=== PATIENT | male | born 2000 | race Two or more races ===

== ENCOUNTER 2021-03-04 23:17 | Observation (INO) ==
[2021-03-05] MEDS ORDERED: ACETAMINOPHEN 1,000 MG/100 ML VIAL IV STA (01:00)
[2021-03-05] MEDS ORDERED: ONDANSETRON INJ 2 MG/ML 2 ML VIAL IV STA (01:00)
[2021-03-05] MEDS ORDERED: SODIUM CHLORIDE 0.9% 1000ML 1,000 ML IV STA (01:00)
--- NOTE | 2021-03-05 01:03 | Emergency Department Note ---
History of Present Illness General Chief complaint: Abdominal Pain Stated complaint: ABDOMINAL PAIN Time Seen by Provider: 03/05/21 00:47 History of Present Illness Maximum Pain Intensity: 8 This 20-year-old presents to the ER complaining of nausea vomiting and abdominal pain Location: Abdomen Quality: Discomfort Severity: Moderate Duration: This morning Timing: Started this morning Context: Patient was concerned and came in Modifying factors: better with rest; worse with activity Patient denies chest pain, dyspnea, fevers, diarrhea, urinary symptoms, testicular or penile pain. No prior abdominal surgeries. Home Medications Medication Instructions Recorded Confirmed Type oxymetazoline 0.05 % nasal spray 2 spray INTRANASAL Q12H PRN 01/08/21 03/05/21 History (Nasal [place] (oxymetazoline)) Allergies Allergy/AdvReac Type Severity Reaction Status Date / Time No Known Allergies Allergy Unverified 03/05/21 01:10 Past Med/Surg History Medical History No pertinent past medical history Surgical History No pertinent past surgical history Social History Smoking Status: Current every day smoker Tobacco Type: E-cigarettes / Vaping Preferred Language: Persian Feels Safe at Home: Yes Review of Systems A total of 10 systems reviewed and were otherwise negative Physical Exam Vital Signs Vital Signs - 24 hr 03/04/21 23:29 03/05/21 01:27 Temperature 36.4 C L Temperature Source Temporal Artery Scan Pulse Rate 96 H Respiratory Rate 20 Respiratory Effort / Characteristics Non-Labored Respiratory Depth Normal Blood Pressure 99/68 L Blood Pressure Mean 78 Blood Pressure Position Sitting Pulse Oximetry 99 98 Oxygen Delivery Method Room Air Room Air Sepsis Recent Fever Within 48 Hours No Sepsis New/Unexplained Change in Mental Status No Sepsis Action Taken by Nursing No Action Required VITALS: Vitals are noted on the nurse's note and reviewed by myself. Vital signs stable. GENERAL: Pleasant male, in no acute distress, nondiaphoretic, well-developed well-nourished. SKIN: The skin was without rashes, erythema, edema, or bruising. There is no tenting of the skin. Capillary reflex less than 2 seconds. HEAD: Normocephalic atraumatic. EARS: External auditory canals clear, EYES: Pupils equal round and reactive to light and accommodation. Conjunctivae without injection, sclerae without icterus. Extraocular movements intact. NOSE: Patent, turbinates without inflammation or discharge. MOUTH: Mucous membranes mildly dry. Pharynx without erythema or exudate. Uvula midline. Airway patent. Tongue does not deviate. NECK: Supple without nuchal rigidity. No lymphadenopathy. No thyromegaly. Cervical spine is nontender. No JVD. HEART: Regular rate and rhythm without murmurs gallops or rubs. LUNGS: Clear to auscultation bilaterally without wheezes, rales or rhonchi. No retractions or accessory muscle use. ABDOMEN: Positive bowel sounds x 4. Normal tympanic percussion. Soft, tender periumbilical right lower quadrant, without masses or organomegaly. Foy sign negative. No guarding or rebound tenderness. No CVA tenderness MUSCULOSKELETAL: No muscle atrophy, erythema, or edema noted. NEURO: Patient was alert and oriented to person place and time. Normal sensation to light and sharp touch. No focal neurological deficits. Course Administered Medications Discontinued Medications Sodium Chloride (Nss 1000ml) 1,000 mls @ 999 mls/hr IV .Q1H1M STA Stop: 03/05/21 02:00 Last Infusion: 03/05/21 02:23 Dose: 0 mls/hr Documented by: [id number] Admin: 03/05/21 01:28 Dose: 999 mls/hr Documented by: [id number] Acetaminophen (Ofirmev) 1,000 mg in 100 mls @ 400 mls/hr IV NOW STA Stop: 03/05/21 01:14 Last Infusion: 03/05/21 02:23 Dose: 0 mls/hr Documented by: [id number] Admin: 03/05/21 01:27 Dose: 400 mls/hr Documented by: [id number] Ioversol (Optiray 320 100ml) 94 ml IV ONCE ONE Stop: 03/05/21 04:16 Last Admin: 03/05/21 04:15 Dose: 94 ml Documented by: [id number] Ondansetron HCl (Ondansetron Inj 2 Mg/Ml 2 Ml Vial) 4 mg IV NOW STA Stop: 03/05/21 01:01 Last Admin: 03/05/21 01:28 Dose: 4 mg Documented by: [id number] Medical Decision Making Medical Records Attestation: I reviewed the patient's medical records. Home Medications Current Medication List: was personally reviewed by me Laboratory Data Attestation: I reviewed the patient's lab results. Result diagrams: 03/05/21 01:25 03/05/21 01:25 Lab Results 03/05/21 03/05/21 03/05/21 Range/Units 01:25 01:25 Unknown WBC 14.87 H (4.8-10.8) K/uL RBC 5.07 (4.7-6.1) M/uL Hgb 15.6 (14.0-18.0) g/dL Hct 44.3 (42-52) % MCV 87.4 (80-100) fL MCH 30.8 (25-34) pg MCHC 35.2 (32-36) g/dL RDW Std Deviation 37.6 (36.4-46.3) fL RDW Coeff of [place] 11.8 (11.5-14.5) % Plt Count 285 (130-400) K/uL MPV 9.3 (7.4-10.4) fL Immature Gran % (Auto) 0.2 % Neut % (Auto) 92.1 % Lymph % (Auto) 4.2 % [place] % (Auto) 3.3 % Eos % (Auto) 0.1 % Baso % (Auto) 0.1 % Neut # (Auto) 13.70 H (1.4-6.5) K/uL Lymph # (Auto) 0.62 L (1.2-3.4) K/uL [place] # (Auto) 0.49 (0.11-0.59) K/uL Eos # (Auto) 0.01 (0-0.5) K/uL Baso # (Auto) 0.02 (0-0.2) K/uL Immature Gran # (Auto) 0.03 H (0.00-0.02) K/uL Sodium 139 (136-145) mmol/L Potassium 4.3 (3.5-5.1) mmol/L Chloride 107 (98-107) mmol/L Carbon Dioxide 28 (21-32) mmol/L Anion Gap 4.0 (3-11) BUN 11 (7-18) mg/dl Creatinine 0.88 (0.6-1.4) mg/dl Est Cr Clr Drug Dosing 106.1 ml/min Est GFR ( Amer) 143.3 ml/min Est GFR (Non-Af Amer) 123.7 ml/min BUN/Creatinine Ratio 12.6 (10-20) Glucose 97 (70-99) mg/dl Calcium 9.4 (8.5-10.1) mg/dl Total Bilirubin 1.6 H (0.2-1) mg/dl AST 10 L (15-37) U/L ALT 15 (12-78) U/L Alkaline Phosphatase 79 (45-117) U/L Total Protein 7.8 (6.4-8.2) gm/dl Albumin 4.6 (3.4-5.0) gm/dl Globulin 3.2 (2.5-4.0) gm/dl Albumin/Globulin Ratio 1.4 (0.9-2) Lipase 81 (73-393) U/L Urine Color Yellow Urine Appearance Clear (Clear) Urine pH 6.5 (4.5-7.5) Ur Specific [place] 1.024 (1.000-1.030) Urine Protein Negative (Negative) Urine Glucose (UA) Negative (Negative) Urine Ketones 3+ H (Negative) Urine Blood Negative (Negative) Urine Nitrite Negative (Negative) Urine Bilirubin Negative (Negative) Urine Urobilinogen Negative (Negative) Ur Leukocyte Esterase Negative (Negative) Imaging Data Attestation: I personally reviewed and interpreted this imaging study as follows: MDM Narrative Prior records/ancillary studies reviewed. Triage Nursing notes reviewed. Additional history obtained from nursing. The patient's history was concerning for abdominal pain. Differential diagnosis: Etiologies such as appendicitis, diverticulitis, PUD, biliary pathology, UTI, pancreatitis, obstruction, mesenteric ischemia, aortic pathology, infections, inflammatory bowel disease, renal colic, as well as others were entertained. Physical examination findings: As above. ER treatment provided: An order was placed for continuous cardiac monitoring. The monitor shows a rate of 60-1 20 with a sinus rhythm. IV fluids, Zofran, Tylenol, Mefoxin On reassessment the patient felt better. Diagnostics interpreted by me: The labs revealed leukocytosis Imaging studies: Preliminary Findings Only See Final Report For Complete Findings CT ABDOMEN & PELVIS With Contrast: Comparison made to prior study of January 08, 2021. Liver spleen pancreas and gallbladder appear normal. Stomach, small bowel and colon appear normal. The appendix visualized extending posteriorly and medially from the cecum. The appendix is mildly distended and thickened with appendicolith formations. The appendix measures 11 mm transversely. The appendiceal wall measures 2 mm. Adrenals kidneys ureters bladder and prostate appear normal. Vascular structures appear normal. There is a trace of pericholecystic fluid in the gallbladder fossa. Impression: Trace of pericholecystic fluid is a nonspecific possibly related to appendiceal inflammation. Appendiceal thickening and distention suggesting acute appendicitis Radiologist: Kenneth Campo MD Study ready at 04:20 and initial results transmitted at 05:15 Communications: Clear Time Type Notes 03/05/21 05:17 Call Doctor Regarding Above results, called BARRY Trujillo Consultation: A consultation was placed with the surgical BARRY Moses. The case was discussed and diagnostics were reviewed. The patient was evaluated in the ER for further treatment. Exam and history seem consistent with acute appendicitis. Surgery was consulted. He is started antibiotics. Surgery will evaluate. By the evaluation outlined above emergent etiologies such as diverticulitis, PUD, biliary pathology, UTI, pancreatitis, obstruction, mesenteric ischemia, aortic pathology, inflammatory bowel disease, renal colic, as well as others were deemed relatively unlikely. The pt informed about the findings as listed above. All questions were answered and pleased with the treatment. The chart was completed utilizing [employer] Speech voice recognition software. Grammatical errors, random word insertions, pronoun errors, and incomplete sentences are an occassional consequence of this system due to software limitations, ambient noise, and hardware issues. Any formal questions or concerns about the content, text, or information contained within the body of this dictation should be directly addressed to the physician assistant terminal manager for clarification. Impression & Plan Acute appendicitis Discharge Plan Visit Data Chief Complaint: Abdominal Pain Stated Complaint: ABDOMINAL PAIN ED Provider: Claudia Lambert ED Midlevel Provider: Beth Marcos Discharge Problem: Acute appendicitis Patient Disposition: Being Evaluated by Surgeon Condition: Good Forms Stand Alone Forms: [employer] Prescriptions Prescriptions: No Action oxymetazoline [Nasal [place] (oxymetazoline)] 0.05 % [place],Non-Aerosol 2 spray INTRANASAL Q12H PRN (Reason: Congestion) RF: 0 Referrals Referrals: [facility] [Primary Care Provider] - Discharge Problem: Acute appendicitis Qualifiers: Acute appendicitis type: with localized peritonitis Appendicitis gangrene presence: without gangrene Appendicitis perforation presence: without perforation Appendicitis abscess presence: without abscess Qualified Code(s): K35.30 - Acute appendicitis with localized peritonitis, without perforation or gangrene
[2021-03-05 01:38] LABS: Basophils # (auto) 0.02 K/uL (0-0.2); Basophils % (auto) 0.1 %; Eosinophils # (auto) 0.01 K/uL (0-0.5); Eosinophils % (auto) 0.1 %; Hematocrit (blood only) 44.3 % (42-52); Hemoglobin 15.6 g/dL (14.0-18.0); Immature Granulocytes # (auto) 0.03 K/uL (0.00-0.02); Immature Granulocytes % (auto) 0.2 %; Lymphocytes # (auto) 0.62 K/uL (1.2-3.4); Lymphocytes % (auto) 4.2 %; Mean Corpuscular Hemoglobin 30.8 pg (25-34); Mean Corpuscular Hgb Conc 35.2 g/dL (32-36); Mean Corpuscular Volume 87.4 fL (80-100); Mean Platelet Volume 9.3 fL (7.4-10.4); Monocytes # (auto) 0.49 K/uL (0.11-0.59); Monocytes % (auto) 3.3 %; Neutrophils % (auto) 92.1 %; Platelet Count 285 K/uL (130-400); RDW Coefficient of Variation 11.8 % (11.5-14.5); RDW Standard Deviation 37.6 fL (36.4-46.3); Red Blood Count 5.07 M/uL (4.7-6.1); White Blood Count 14.87 K/uL (4.8-10.8)
[2021-03-05 02:13] LABS: Albumin Level 4.6 gm/dl (3.4-5.0); BUN Creatinine Ratio 12.6 (10-20); Calcium 9.4 mg/dl (8.5-10.1); Creatinine Clr Calc Pharmacy 106.1 ml/min; Est GFR (African American) 143.3 ml/min; Est GFR (Non-African American) 123.7 ml/min; Potassium 4.3 mmol/L (3.5-5.1)
[2021-03-05 02:15] LABS: Albumin Globulin Ratio 1.4 (0.9-2); Bilirubin,Total 1.6 mg/dl (0.2-1); Globulin 3.2 gm/dl (2.5-4.0); Total Protein 7.8 gm/dl (6.4-8.2)
[2021-03-05 02:36] LABS: Appearance Urine Clear (Clear); Bilirubin Urine Negative (Negative); Blood Urine Negative (Negative); Color Urine Yellow; Glucose Urine UA Negative (Negative); Ketones Urine 3+ (Negative); Leukocyte Esterase Urine Negative (Negative); Nitrite Urine Negative (Negative); Protein Urine Negative (Negative); Specific Gravity Urine 1.024 (1.000-1.030); Urobilinogen Urine Negative (Negative); pH Urine 6.5 (4.5-7.5)
[2021-03-05] MEDS ORDERED: OPTIRAY 320 100ml IV ONE (04:15)
[2021-03-05] MEDS ORDERED: cefOXitin 2,000 MG/60 ML BAG IV STA (05:20)
--- NOTE | 2021-03-05 05:35 | History & Physical Report ---
Date of Service March 05, 2021 Assessment & Plan (1) Acute appendicitis: Plan: Due to the patient's imaging, labs, and clinical presentation there is concern for acute appendicitis we will proceed as follows: Provide analgesics Provide antiemetics Continue antibiotics. The patient has received cefoxitin in the emergency department Keep patient n.p.o. Provide hydration with IV fluids I have discussed performing appendectomy with the patient. I discussed the risks, benefits, and alternatives. He wishes to proceed. I also discussed the expected postoperative recovery. Additional recommendations were made based on operative findings and his clinical course thereafter. We will use SCDs for DVT prevention no chemical means due to planned surgery History of Present Illness Chief Complaint: Abdominal pain Primary Care Provider: [facility] This is a 20-year-old male who developed some generalized abdominal pain yesterday. He said the pain got progressively worse and is now shifted to the right lower quadrant. He denies any fevers, shakes, chills. He did have associated nausea vomiting. He denies any diarrhea. He denies any prior abdominal surgeries. Because of his symptomatology he presented to the emergency department. He denies any radiation of the pain but notes that the pain was markedly improved with analgesics that were administered in the emergency department In the emergency department patient had labs and imaging which I independently reviewed. He did have a CT scan of the abdomen pelvis that showed a mildly distended and thickened appendix with appendicolith formations. The appendix was dilated at 11 mm and was noted to be thickened with a 2 mm wall thickness. Findings were concerning for acute appendicitis. Labs include a CBC her white blood cell count was 14.8. Hemoglobin, hematocrit, and platelet count are within normal range. A chemistry profile showed sodium, potassium, BUN, and creatinine were all within normal range. There is no significant elevation of LFTs or lipase. Urinalysis was not indicative of infection. A Covid test has been performed and is pending. At the time my interview he is resting comfortably in bed he was in no distress. Allergies Allergy/AdvReac Type Severity Reaction Status Date / Time No Known Allergies Allergy Unverified 03/05/21 01:10 Home Medications Medication Instructions Recorded Confirmed Type oxymetazoline 0.05 % nasal spray 2 spray INTRANASAL Q12H PRN 01/08/21 03/05/21 History (Nasal [place] (oxymetazoline)) Past Med/Surg History Medical History No pertinent past medical history Surgical History No pertinent past surgical history Social History Smoking Status: Current every day smoker Tobacco Type: E-cigarettes / Vaping Preferred Language: Malay Feels Safe at Home: Yes Review of Systems Constitutional: no fever and no chills Eyes: no diplopia Ear, Nose, Mouth, Throat: no ear pain Respiratory: no cough and no dyspnea Cardiovascular: no chest pain Gastrointestinal: + abdominal pain, + nausea and + vomiting Genitourinary: no dysuria Musculoskeletal: no back pain Integumentary: no rash Neurologic: no localized weakness Physical Exam Constitutional: well developed and well nourished; no acute distress Eyes: no conjunctival abnormality ENMT: Ears: no hearing impairment Mouth: no oropharynx abnormality Neck: trachea midline Respiratory: normal respiratory effort, lungs clear to auscultation Cardiovascular: Rate/Rhythm: regular rate and regular rhythm Gastrointestinal (Abdomen): Bowel sounds are present. Abdomen is soft and nondistended. There is no rebound tenderness or guarding. Patient did have some pain in the right lower quadrant but was noted to be minimal however the patient had just received intravenous analgesics. Musculoskeletal: No calf tenderness Skin: no rashes Neurologic: moves all extremities Psychiatric: A+Ox3, euthymic affect Results & Data Results & Data ([facility]) Vital Signs (Past 12 Hours) Vital Signs Temp Pulse Resp BP Pulse Ox 03/05/21 01:27 98 03/04/21 23:29 36.4 C L 96 H 20 99/68 L 99 Supervising Physician Co-Signing Physician Notes Patient seen and examined, labs and image reviewed, agree with above. 20-year-old otherwise healthy male presented with periumbilical pain that migrated to his right lower quadrant. On exam he is afebrile with stable vitals. Tender palpation in right lower quadrant. Labs show leukocytosis. CT personally reviewed and interpreted, agree with nonperforated acute appe ndicitis. Plan for laparoscopic appendectomy The risk the procedure were discussed to include but not limited to bleeding, infection, normal appendix, damage surrounding structures, need for future more extensive surgery, conversion open, and the risk of anesthesia Potential discharge this afternoon versus tomorrow depending on clinical course PG Care Time/CCT Total # of Minutes Spent Total Time Spent with Patient: Total time spent is greater than 50% in coordination of care (as documented) at patient's floor/unit and/or counseling patient: Coding Level of Care Code INT OBSERVATION CARE 70M LVL 3 Diagnoses Acute appendicitis K35.30 Acute appendicitis type: with localized peritonitis Appendicitis abscess presence: without abscess Appendicitis gangrene presence: without gangrene Appendicitis perforation presence: without perforation (1) Acute appendicitis Acute appendicitis type: with localized peritonitis Appendicitis abscess presence: without abscess Appendicitis gangrene presence: without gangrene Appendicitis perforation presence: without perforation Qualified Code(s): K35.30 - Acute appendicitis with localized peritonitis, without perforation or gangrene
--- NOTE | 2021-03-05 08:22 | CT Scan Report ---
CT OF THE ABDOMEN AND PELVIS WITH CONTRAST CLINICAL HISTORY: Right lower quadrant abdominal pain. COMPARISON STUDY: CT of the abdomen and pelvis January 08, 2021. TECHNIQUE: Following IV administration of 94 mL of Optiray, axial images of the abdomen and pelvis we re obtained from the lung bases to the proximal femurs. Images were reviewed in the axial, sagittal, and coronal planes. IV contrast was administered without complication. Automated exposure control wa s utilized for the study. A dose lowering technique was utilized adhering to the principles of ALARA . CT DOSE: 272.14 mGy.cm FINDINGS: Lung bases are unremarkable. No pneumatosis, free air or portal venous gas is present. The liver, spleen, adrenal glands, kidneys and pancreas are unremarkable. Subcentimeter right renal lesio n is too small to characterize. There is no biliary or pancreatic ductal dilatation. There is no evid ence for a bowel obstruction. Several appendicoliths within the appendix are noted. The appendix is d ilated, measuring 1.2 cm in caliber. The appendiceal wall is mildly thickened. There is trace adjacen t fluid. A small amount of fluid within the pelvis is also noted. There is no free air or abscess. Bl adder is mildly distended. There is no hydronephrosis. IMPRESSION: Mildly dilated appendix which contains several appendicoliths. Mild appendiceal wall thi ckening. Trace adjacent fluid. Findings suggest acute appendicitis. No free air or abscess. ACT 112: Negative or not required by law. Electronically signed by: Houston Bird M.D. 03/05/2021 8:21 AM
[2021-03-05] MEDS ORDERED: MoRPHine SULFATE 2 MG/ML CARP IV PRN ×2 (08:42→16:06)
[2021-03-05] MEDS ORDERED: ACETAMINOPHEN 1,000 MG/100 ML VIAL IV PRN (08:42)
[2021-03-05] MEDS ORDERED: ONDANSETRON INJ 2 MG/ML 2 ML VIAL IV PRN ×2 (08:42→14:00)
[2021-03-05] MEDS: LACTATED RINGER'S 1,000 ML IV SCH (08:59)
--- NOTE | 2021-03-05 09:27 | Anesthesiology Consultation ---
Date of Service March 05, 2021 Assessment & Plan (1) Encounter for pre-operative examination: Chart Review Chart Review: Acceptable Risk for Surgery and Patient NOT seen in Pre Admission Testing Consults Requested none ASA ASA2 Proposed Anesthesia Anesthesia Type: General and MAC Regional Risk / Benefits Reviewed With: PT / POA / Parent / Guardian, Accepts Plan and Informed Consent Obtained History Surgery Operation Date: 03/05/21 11:30 Proposed Procedures p Laparoscopic Appendectomy - Jagdish Lake, DO, FACS Height/Weight Height: 5 ft 11.46 in Weight: 55.4 kg Allergies Allergy/AdvReac Type Severity Reaction Status Date / Time No Known Allergies Allergy Unverified 03/05/21 01:10 Medications Home Medications Medication Instructions Recorded Confirmed Last Taken oxymetazoline 0.05 % nasal spray 2 spray INTRANASAL Q12H PRN 01/08/21 03/05/21 12/31/20 (Nasal [place] (oxymetazoline)) Active Medications Generic Name Dose Route Start Last Admin Trade Name Freq PRN Reason Stop Dose Admin Lactated Ringer's 1,000 mls @ 75 mls/hr 03/05/21 08:42 03/05/21 12:40 Lr IV 04/04/21 08:41 0 mls/hr .[id number] Infusion Cefoxitin Sodium 2,000 mg/ 60 mls @ 100 mls/hr 03/05/21 12:00 03/05/21 13:59 Dextrose IV 03/15/21 08:41 Infused Q6H JAZZY Titration NPO Date Last Intake of Fluids: 03/05/21 Time Last Intake of Fluids: 03:00 Date Last Intake of Solids: 03/04/21 Time Last Intake of Solids: 12:00 Past Medical History Medical History No pertinent past medical history Exercise / Class Metabolic Activity II 4-5 Yardwork/Stairs/Walk up hill Negative for chest pain or shortness of breath. Past Surgical History Surgical History No pertinent past surgical history Hx of arm fracture repair Hx of testicular surgery Past Anesthesia History No Hx of Anesthesia Complications History of PONV No Hx of PONV Social History Smoking Status: Current every day smoker tobacco type: e-cigarettes Do You Dip or Chew Tobacco: No Hx Alcohol Use: No Hx Substance Use: No substance use type: does not use Review of Systems Patient denies active symptoms of GERD. Denies N/V Physical Exam Vital Signs Last Vital Signs Temp 37.3 C 03/05/21 08:46 Pulse 66 03/05/21 08:46 Resp 16 03/05/21 08:46 BP 117/72 03/05/21 08:46 Pulse Ox 100 03/05/21 08:46 Constitutional not obese ENMT Mouth: no TMJ abnormality and oral opening not small Thyromental Distance: > or= 3.5 Finger Breadths Mallampati Class: I Mouth / Teeth: 1. broken 2. broken 3. permanent retainer Neck normal visual inspection; neck extension not limited Respiratory normal respiratory effort Cardiovascular Rate/Rhythm: regular rate and regular rhythm Neurologic moves all extremities Psychiatric Orientation: alert and oriented x 3 Testing Laboratory Results 03/05/21 01:25 03/05/21 01:25 Urine Color Yellow 03/05/21 Unknown Urine Appearance Clear (Clear) 03/05/21 Unknown Urine pH 6.5 (4.5-7.5) 03/05/21 Unknown Ur Specific [place] 1.024 (1.000-1.030) 03/05/21 Unknown Urine Protein Negative (Negative) 03/05/21 Unknown Urine Glucose (UA) Negative (Negative) 03/05/21 Unknown Urine Ketones 3+ (Negative) H 03/05/21 Unknown Urine Nitrite Negative (Negative) 03/05/21 Unknown Ur Leukocyte Esterase Negative (Negative) 03/05/21 Unknown
[2021-03-05] MEDS ORDERED: cefOXitin 2,000 MG in DEXTROSE 5% 50 ML IV SCH (12:00)
[2021-03-05] MEDS ORDERED: LIDOCAINE 2% 2 ML VIAL/AMP(20MG/ML) INFIL ONE (13:12)
[2021-03-05] MEDS ORDERED: MIDAZOLAM HCL 1 MG/ML 2ML VIAL ONE (13:12)
[2021-03-05] MEDS ORDERED: ROCURONIUM BROMIDE 10 MG/ML 5 ML VIAL IV ONE (13:12)
[2021-03-05] MEDS ORDERED: PROPOFOL IV EMULSION 10 MG/ML 20 ML VIAL IV ONE (13:12)
[2021-03-05] MEDS ORDERED: fentaNYL citrate 100 MCG/2 ML VIAL ONE ×2 (13:13→15:01)
[2021-03-05] MEDS ORDERED: BUPIVACAINE 0.5 % 5 MG/1 ML MPF 30ML VIAL ONE (13:16)
[2021-03-05] MEDS ORDERED: PROMETHAZINE HCL 12.5 MG in SODIUM CHLORIDE 0.9% 50 ML IV PRN (14:00)
[2021-03-05] MEDS ORDERED: ePHEDrine sulfate 50 MG/ML AMP IV PRN (14:00)
[2021-03-05] MEDS ORDERED: ATROPINE SULFATE 0.1 MG/ML 10ML SYR IV PRN (14:00)
[2021-03-05] MEDS ORDERED: ONDANSETRON INJ 2 MG/ML 2 ML VIAL ONE (14:28)
[2021-03-05] MEDS ORDERED: DEXAMETHASONE SOD INJ 4 MG/ML VIAL ONE (14:28)
[2021-03-05] MEDS ORDERED: GLYCOPYRROLATE 0.2 MG/ML VIAL ONE (14:52)
[2021-03-05] MEDS ORDERED: NEOSTIGMINE METHYLSULFATE 1 MG/ML 10ML VIAL ONE (14:52)
--- NOTE | 2021-03-05 15:03 | Operative Report ---
PG Post Operative Report Pre & Post Diagnosis Operation Date: 03/05/21 11:30 Pre-Op Diagnosis: Acute appendicitis Post-Op Diagnosis: Acute appendicitis I identified the patient and participated in the time-out.: Yes Procedure Operation Date: 03/05/21 11:30 Actual Procedures p Laparoscopic Appendectomy(Not Applicable) - Jagdish Lake DO, MANDY Surgeon Jagdish Lake DO, MANDY Solution Strategist Apollo Saldana 2 Estimated Blood Loss 5 Findings Consistent with Post-Op Diagnosis Acute, Nonperforated appendicitis Specimens Appendix Anesthesia Type General Complications none Disposition Accompanied Patient To Recovery: No Disposition: Recovery Room Indications 20-year-old male presented to the emergency department signs and symptoms of acute appendicitis, confirmed by CT. Plan for laparoscopic appendectomy. The risks of the procedure were discussed, all questions were answered, and the patient agreed to proceed with surgery as planned. Description of Procedure The patient was properly identified, consented, and taken to the operating room where he was placed in the supine position. General endotracheal anesthesia was induced. SCDs and a safety belt were placed. Preoperative antibiotics were administered. A Ortiz catheter was not placed. The patient's abdomen was prepped and draped in the standard sterile fashion. Surgical timeout was performed and all parties were in agreement that this was the correct patient and procedure to be performed and we continued as planned. A curvilinear infraumbilical incision was made with electrocautery and deepened down to the fascia with blunt dissection. The base of the umbilicus was grasped with a Shae and elevated towards the ceiling. An incision was made in the midline fascia with a knife and entry into the peritoneum was confirmed. Stay suture of 0 Vicryl was placed and a Rothman trocar was inserted. The abdomen was insufflated with carbon dioxide which the patient tolerated without incident. The laparoscope was inserted and no damage from initial trocar placement was noted, no gross abnormalities were noted within the 4 quadrants the abdomen. 5 mm ports were then placed in the left lower quadrant with care not to damage the epigastric vessels, and in the suprapubic midline with care not to damage the bladder. The patient was placed in Trendelenburg position and rotated towards the left. The small bowel was swept away from the right lower quadrant. The cecum was grasped with an atraumatic grasper exposing the appendix. The appendix was mildly inflamed and dilated and there was no evidence of perforation. There was no fluid in the pelvis. A window was created between the base of the appendix and the mesoappendix. A cope loaded endoscopic stapler was then used to divide the appendix at its base. A cope load was then used to divide the mesoappendix. Hemostasis was good. The appendix was placed in an Endo Catch bag and removed through the umbilical port site. The right lower quadrant and pelvis was irrigated and hemostasis was found to be good. 5 mm trochars were removed under direct visualization and the abdomen was allowed to collapse. The umbilical port site fascia was closed with 0 Vicryl suture. The wound was irrigated, and the skin of all ports was closed with 4-0 Monocryl subcuticular sutures. Dermabond was placed over the wounds. The patient was extubated in the operating room and taken to the PACU where he recovered without apparent incident. All sponge, instrument and needle counts were correct at the conclusion of the procedure. The patient tolerated the procedure well. I attest to the content of the Intraoperative Record and any orders documented therein. Any exceptions are noted below.
[2021-03-05] MEDS ORDERED: MEPERIDINE HCL 25 MG/ML CARP/VIAL IV PRN (15:11)
[2021-03-05] MEDS: fentaNYL citrate 100 MCG/2 ML VIAL IV PRN ×2 (15:32→15:38)
--- NOTE | 2021-03-05 15:43 | Anesthesiology Progress Note ---
Date of Service March 05, 2021 Anesthesia Post Procedure Vital Signs Vital Signs: Temp Pulse Pulse Pulse Resp BP BP 03/05/21 15:35 66 15 122/74 03/05/21 15:25 83 12 98/56 L 03/05/21 15:16 36.4 C L 109 H 18 127/69 03/05/21 08:46 37.3 C 66 16 117/72 03/05/21 08:07 98 H 20 107/65 03/05/21 06:30 73 108/61 03/05/21 01:27 03/04/21 23:29 36.4 C L 96 H 20 99/68 L Pulse Ox 03/05/21 15:35 100 03/05/21 15:25 100 03/05/21 15:16 100 03/05/21 08:46 100 03/05/21 08:07 98 03/05/21 06:30 99 03/05/21 01:27 98 03/04/21 23:29 99 Transfer of Care Handoff Completed per policy Notes Mental Status: alert / awake / arousable and participated in evaluation Patient Amnestic to Procedure: Yes Nausea / Vomiting: adequately controlled Pain: adequately controlled Airway Patency, RR, SpO2: stable & adequate BP & HR: stable & adequate Hydration State: stable & adequate Anesthetic Complications: no major complications apparent and Pt Satisfied with anesthetic care
[2021-03-05] MEDS ORDERED: MoRPHine SULFATE 4 MG/ML 1 ML CARP\\VIAL IV PRN (16:06)
[2021-03-05] MEDS ORDERED: diphenhydrAMINE 50 MG/ML VIAL IV PRN (16:06)
[2021-03-05] MEDS ORDERED: oxyCODONE/ACETAMINOPHEN 5mg/325mg TAB PO PRN ×2 (16:06)
[2021-03-05] MEDS: KETOROLAC TROMETHAMINE 15 MG/ML VIAL IV SCH ×2 (17:35→22:03)
[2021-03-06] MEDS: LACTATED RINGER'S 1,000 ML IV SCH ×2 (00:47→11:42)
--- NOTE | 2021-03-06 05:49 | Surgery Progress Note ---
Date of Service March 06, 2021 Assessment & Plan (1) Acute appendicitis: Plan: Postop day #1 laparoscopic appendectomy Continue analgesics Continue antiemetics We will consider advancing diet this morning and if tolerated consider discharge home. Admission and Anticipated Discharge Date Admission Date: March 05, 2021 Supervising Physician Co-Signing Physician Notes Patient seen and examined, agree with above. POD #1 laparoscopic appendectomy, doing well. On exam afebrile stable vitals, abdomen soft, probably tender to palpation, incisions without infection. Plan to discharge to home later this morning if tolerates breakfast. Wound care instructions, activity restrictions, and return precautions given. Follow-up in 2 weeks. Subjective Patient is resting comfortably in bed. He notes some minor abdominal pain at his surgical incisions. He says he has tolerated liquid since his surgery. Currently denies any nausea or vomiting. Physical Exam Gastrointestinal (Abdomen): Abdomen is soft and nondistended. Incisions are clean, dry, intact. Patient has appropriate tenderness at surgical incisions. Bowel sounds are present. Results & Data ([facility]) Vital Signs (Past 12 Hours) Vital Signs Temp Pulse Resp BP Pulse Ox 03/06/21 05:31 37.2 C 80 16 97/60 L 98 03/06/21 00:00 36.6 C 75 16 103/64 99 03/05/21 19:13 37.3 C 80 16 103/59 L 98 03/05/21 18:05 36.8 C 71 18 112/63 97 PG Care Time/CCT Total # of Minutes Spent Total Time Spent with Patient: Total time spent is greater than 50% in coordination of care (as documented) at patient's floor/unit and/or counseling patient: Coding Level of Care Code None Diagnoses Acute appendicitis K35.30 Acute appendicitis type: with localized peritonitis Appendicitis abscess presence: without abscess Appendicitis gangrene presence: without gangrene Appendicitis perforation presence: without perforation (1) Acute appendicitis Acute appendicitis type: with localized peritonitis Appendicitis abscess presence: without abscess Appendicitis gangrene presence: without gangrene Appendicitis perforation presence: without perforation Qualified Code(s): K35.30 - Acute appendicitis with localized peritonitis, without perforation or gangrene
[2021-03-06] MEDS: KETOROLAC TROMETHAMINE 15 MG/ML VIAL IV SCH ×2 (05:58→11:14)
--- NOTE | 2021-03-06 19:56 | Discharge Summary ---
Date of Service March 06, 2021 Discharge Data Consultations 03/05/21 05:24 ED Decision to Admit Stat Procedures Performed Operation Date: 03/05/21 11:30 Actual Procedures p Laparoscopic Appendectomy(Not Applicable) - Jagdish Lake DO, FACS Hospital Course (1) Acute appendicitis: Patient presented [facility] emergency department secondary to abdominal pain along with nausea and vomiting. Clinical presentation, labs, and imaging were consistent with acute appendicitis. Patient was therefore placed in the hospital in observation status and provided with appropriate antibiotics. The day following admission he was taken the operating room where he underwent a laparoscopic appendectomy. Following surgery he had an uncomplicated postoperative course. His diet was advanced as tolerated. He was deemed safe for discharge home on postop day #1. He was instructed in appropriate wound care, diet, and activity. He was told to call Dr. Lake office for 1 to 2-week follow-up appointment. Coding Level of Care Code None Diagnoses Acute appendicitis K35.30 Acute appendicitis type: with localized peritonitis Appendicitis abscess presence: without abscess Appendicitis gangrene presence: without gangrene Appendicitis perforation presence: without perforation
== END 2021-03-06 12:20 | disposition home or self-care (01) ==
LOC: 3E 23:17 → ED 23:17 → 3E 03-05 08:23